=== PATIENT | male | born 1990 | race Asian ===

== ENCOUNTER 2020-08-25 16:44 | Emergency (ER) | payer OTHER ==
[~2020-08-25] VITALS: Ht 157.5 cm; Wt 62.5 kg
--- NOTE | 2020-08-25 17:42 | NUR ---
PT AMBULATED TO X RAY WITH STEADY GAIT Addendum: 08/25/20 at [address] SCAN*
--- NOTE | 2020-08-25 18:24 | NUR ---
PT PLACED IN C COLLAR FOR SAFETY
[2020-08-25] MEDS ORDERED: IBUPROFEN 800 MG TABLET ONE (18:39)
--- NOTE | 2020-08-25 18:53 | NUR ---
received report from ANETA Mackey
[2020-08-25] MEDS ORDERED: IBUPROFEN 800 MG TABLET PO ONE (19:00)
--- NOTE | 2020-08-25 19:04 | NUR ---
MRI questionnaire faxed.
--- NOTE | 2020-08-25 20:14 | NUR ---
patient to MRI.
--- NOTE | 2020-08-25 20:43 | NUR ---
back from MRI. awaiting result.
--- NOTE | 2020-08-25 20:58 | NUR ---
MRI resulted. chart up for MD to re-eval.
[2020-08-25 22:24] VITALS: BP 122/82
--- NOTE | 2020-08-25 22:24 | NUR ---
patient discharged with instruction. verbalized understanding.
== END 2020-08-25 22:27 | disposition home or self-care (01) ==
LOC: ED 21:57
DX: S12.300A Unspecified displaced fracture of fourth cervical vertebra, initial encounter for closed fracture (principal); S16.1XXA Strain of muscle, fascia and tendon at neck level, initial encounter; R51.9 Headache, unspecified; V49.49XA Driver injured in collision with other motor vehicles in traffic accident, initial encounter; Y93.89 Activity, other specified; Y92.410 Unspecified street and highway as the place of occurrence of the external cause; Y99.8 Other external cause status
CPT/HCPCS: 72125; 72141; 93005; 99285